=== PATIENT | female | born 1950 | race Caucasian/White ===

== ENCOUNTER 2016-08-10 18:05 | Emergency (ER) | payer OTHER ==
[~2016-08-10] VITALS: Ht 162.6 cm; Wt 113.4 kg
[~2016-08-10 18:05] MED LIST: CLIN1GEL3 TOP; DULO30CA PO; FIOR30CA PO; LISI20TA3 PO; METF500T PO; METH75TA PO; METR0.00 TOP; OMEP40CA2 PO
[2016-08-10] MEDS ORDERED: PRAV40TA2 (18:20)
[2016-08-10] MEDS ORDERED: DESO0.053 (18:20)
[2016-08-10] MEDS ORDERED: ALPR0.5T3 (18:20)
[2016-08-10 20:25] VITALS: BP 146/62
[2016-08-15] MEDS ORDERED: CLOB0.0548 TOP (10:51)
[2016-08-15] MEDS ORDERED: FIOR1CAP PO (10:51)
[2016-08-15] MEDS ORDERED: PRAV40TA2 PO (10:51)
[2016-08-15] MEDS ORDERED: ALPR0.5T3 PO (10:51)
[2016-08-15] MEDS ORDERED: CLOB0.0548 (10:51)
[2016-08-15] MEDS ORDERED: DESO0.0557 EX (10:51)
[2016-08-15] MEDS ORDERED: DESO0.053 TOP (10:51)
== END 2016-08-10 20:26 | disposition home or self-care (01) ==
LOC: M ED 19:16
DX: H53.8 Other visual disturbances (principal); R10.30 Lower abdominal pain, unspecified; E66.9 Obesity, unspecified; I10 Essential (primary) hypertension; F42.9 Obsessive-compulsive disorder, unspecified; M54.9 Dorsalgia, unspecified; Z88.0 Allergy status to penicillin; Z88.1 Allergy status to other antibiotic agents; Z88.5 Allergy status to narcotic agent; Z88.8 Allergy status to other drugs, medicaments and biological substances; Z79.899 Other long term (current) drug therapy; Z79.84 Long term (current) use of oral hypoglycemic drugs

== ENCOUNTER 2016-08-17 08:30 | Day surgery (SDC) | payer OTHER ==
[2016-08-17] VITALS (8 sets, daily range): BP systolic 124–137; BP diastolic 66–75; O2SAT 98
[~2016-08-17] VITALS: Ht 162.6 cm; Wt 113.4 kg
[~2016-08-17 08:30] MED LIST changes: +ALPR0.5T3; +ALPR0.5T3 PO; +CLOB0.0548; +CLOB0.0548 TOP; +DESO0.053; +DESO0.053 TOP; +DESO0.0557 EX; +FIOR1CAP PO; +LR 1,000 ML IV SCH; +PRAV40TA2; +PRAV40TA2 PO
[2016-08-17 09:11] LABS: MEAN CORPUSCULAR HEMOGLOBIN 30.3 pg (27.0-33.0); MEAN CORPUSCULAR HGB CONC 33.8 g/dl (32.0-36.5); MEAN CORPUSCULAR VOLUME 89.6 fl (80.0-96.0); RED CELL DISTRIBUTION WIDTH 12.8 % (11.5-14.5); WHITE BLOOD COUNT 4.9 K/mm3 (4.0-10.0)
[2016-08-17] MEDS ORDERED: MAGNSOL PO (09:42)
[2016-08-17] MEDS ORDERED: BUPIVACAINE/EPIN 0.25% 30 ML VIAL As Ordered ONE (10:03)
[2016-08-17] MEDS ORDERED: FLUORESCEIN 10% (100MG/ML) 5 ML VIAL As Ordered ONE (10:03)
[2016-08-17] MEDS ORDERED: ACETAMINOPHEN 650 MG SUPP As Ordered ONE (10:03)
--- NOTE | 2016-08-17 10:11 | REP ---
Clinical: Preoperative assessment . Comparison: None . Technique: PA Findings: The mediastinum and cardiac silhouette are normal. The lung varela are clear and without acute consolidation, effusion, or pneumothorax. The skeletal structures are intact and normal. Impression: 1. No acute cardiopulmonary process. Signed by Simone Alvarado MD 08/17/2016 10:03 A
[2016-08-17] MEDS ORDERED: LIDOCAINE 2% INJ 100 MG/5 ML SDV (FOR ANES.) As Ordered ONE (11:59)
[2016-08-17] MEDS ORDERED: PROPOFOL 200 MG/20 ML VIAL As Ordered ONE ×2 (11:59→13:04)
[2016-08-17] MEDS ORDERED: fentaNYL 250 MCG/5 ML INJECTION (J3010) As Ordered ONE (11:59)
[2016-08-17] MEDS ORDERED: ROCURONIUM BROMIDE 50 MG/5 ML VIAL As Ordered ONE (11:59)
[2016-08-17] MEDS ORDERED: KETOROLAC 60 MG/2 ML VIAL (J1885) As Ordered ONE (11:59)
[2016-08-17] MEDS ORDERED: HYDROmorphone HCL 2 MG/ML 1ML VIAL (J1170) As Ordered ONE (11:59)
[2016-08-17] MEDS ORDERED: ONDANSETRON 4MG/2ML VIAL (J2405) As Ordered ONE (11:59)
[2016-08-17] MEDS ORDERED: MIDAZOLAM INJ 2 MG/2 ML VIAL (J2250) As Ordered ONE (11:59)
[2016-08-17] MEDS ORDERED: dexameTHASONE 4 MG/ML 1ML VIAL (J1100) As Ordered ONE (11:59)
[2016-08-17] MEDS ORDERED: GLYCOPYRROLATE INJ 0.2 MG/ML 2 ML VIAL As Ordered ONE (12:31)
[2016-08-17] MEDS ORDERED: NEOSTIGMINE 1MG/ML 5 ML SYRINGE (J2710) As Ordered ONE (12:31)
[2016-08-17] MEDS ORDERED: METOCLOPRAMIDE INJ 10MG/2ML VIAL (J2765) IV PRN (14:15)
[2016-08-17] MEDS ORDERED: fentaNYL 100 MCG/2 ML INJECTION (J3010) IV PRN (14:15)
[2016-08-17] MEDS ORDERED: ONDANSETRON 4MG/2ML VIAL (J2405) IV PRN ×2 (14:15→15:15)
[2016-08-17] MEDS ORDERED: LR 1,000 ML IV SCH (14:15)
[2016-08-17] MEDS ORDERED: MEPERIDINE INJ 25 MG/ML VIAL (J2175) IV PRN (14:15)
[2016-08-17] MEDS ORDERED: PERCOCET 5MG/325MG TAB PO PRN (17:15)
--- NOTE | 2016-08-17 17:26 | RO ---
DATE OF PROCEDURE: 08/17/2016 Sheri is a 66-year-old female status post hysterectomy and right salpingo-oophorectomy. She was noted to have a complex left ovarian/pelvic mass. After extensive counseling a decision was made to remove the ovary/mass. Informed consent was obtained. She was then taken to the operating room after medical clearance. PREOPERATIVE DIAGNOSES: 1. Left ovarian mass/cyst. 2. Post hysterectomy with right salpingo-oophorectomy. POSTOPERATIVE DIAGNOSES: 1. Left ovarian mass/cyst. 2. Post hysterectomy with right salpingo-oophorectomy. 3. Extensive bowel omental and adnexal adhesion. OPERATIVE PROCEDURES: 1. Robotic-assisted laparoscopic left salpingo-oophorectomy. 2. Extensive lysis of adhesion. 3. Cystoscopy. SURGEON: Willi Kay MD CAREER AND GUIDANCE COUNSELOR: None ANESTHESIA: General. COMPLICATIONS: None. ESTIMATED BLOOD LOSS: 400 mL SENT TO THE LAB: The ovary/cyst. DESCRIPTION OF PROCEDURE: Following informed consent the patient was taken to the operating room. When general anesthetic was found to be adequate, she was then draped and prepped in the usual sterile fashion in the dorsal lithotomy position. At this point, a Frazier catheter was placed in the bladder. We then placed a sponge stick in the vagina for uterine manipulator. At this point attention was turned to the abdomen where a 10 mm infraumbilical incision was made. The umbilicus was found to have a small hernia. At this point the trocar was inserted under direct visualization. Upon entering the abdominal cavity, multiple loops of bowel omental adhesions were found obscuring the pelvis and the anterior abdominal wall up to the umbilicus. I was then able to put an 8 mm left lateral port under direct visualization using the Endo Shear and the MACO Harmonic scalpel. I was then able to initiate the lysis of adhesions. We took down the adhesions by the umbilicus and freed down to the pelvis. At that point I was able to put another 8 mm left lateral port as well as a right 8 mm lateral port. With the patient placed in Trendelenburg, the robot was brought to the patient's right side. The robot was docked in the usual fashion. An Endo Shear was placed in arm one and a bipolar grasper in arm two. I then went on scrubbing, went over to the surgeon console and began the surgery. It took us approximately 1-1/2-hour dissecting the adhesions with careful dissection to avoid bowel injury and urethral injury. We were able to free up the left ovarian mass off the pelvic sidewall as well as the cul-de-sac. This was taken down. The infundibulopelvic ligament was identified. This was cauterized and cut. At this point, the ovarian mass as well as the ovary was placed in the cul-de-sac intact. Pelvis copiously irrigated with normal saline and suctioned out. I then rescrubbed and went to the patient's side, undocked the robot. An Endo bag was placed and the left ovarian mass was removed through the umbilical port inside a bag to prevent spillage from the abdominal cavity. The cyst was ruptured with clear yellow fluid and the cyst as well as the remaining ovary was sent to pathology for final diagnosis. At this point, 1 mL of Furacin was given for cystoscopy. I then retrograde filled the bladder with 250 mL of clear urine. Cystoscope was inserted. Cystoscopy was performed. Bilateral urethral jets were noted. No evidence of any bladder injury noted. At this point the cystoscope was removed. The Frazier catheter placed back in the bladder for drainage and the laparoscopic ports were closed using #0 Vicryl in the fascia and #3-0 Vicryl in the skin. Dermabond placed. 0.25% Marcaine was placed for postoperative pain. The patient tolerated procedure well. She was then transferred to recovery room in stable condition.
[2016-08-17] MEDS: IBUPROFEN 800 MG TAB PO SCH (18:00)
[2016-08-17] MEDS ORDERED: LACTATED RINGER'S 1000 ML IV ONE (20:00)
[2016-08-17] MEDS: ONDANSETRON 4MG/2ML VIAL (J2405) IV PRN (20:31)
[2016-08-17] MEDS: SIMETHICONE 80 MG CHEW TAB PO SCH (22:24)
[2016-08-18] VITALS: BP 130/62
[2016-08-18] MEDS: IBUPROFEN 800 MG TAB PO SCH ×2 (00:13→06:00)
[2016-08-18 04:00] VITALS: BP_SYST 133; BP_SYST 167; BP_DIAS 68; BP_DIAS 77
[2016-08-18] MEDS: ONDANSETRON 4MG/2ML VIAL (J2405) IV PRN (04:59)
[2016-08-18] MEDS: SIMETHICONE 80 MG CHEW TAB PO SCH ×2 (06:30)
[2016-08-18 08:00] VITALS: BP 104/55
== END 2016-08-18 10:05 | disposition home or self-care (01) ==
LOC: M SDC 08:30 → M PED 14:30 → M SDC 08-18 10:05
PROVIDERS: ATTEND Obstetrics & Gynecology
DX: D27.1 Benign neoplasm of left ovary (principal); Z90.710 Acquired absence of both cervix and uterus; K66.0 Peritoneal adhesions (postprocedural) (postinfection); I10 Essential (primary) hypertension; E11.9 Type 2 diabetes mellitus without complications; M19.90 Unspecified osteoarthritis, unspecified site; M54.9 Dorsalgia, unspecified; L71.9 Rosacea, unspecified; F41.9 Anxiety disorder, unspecified; F32.9 Major depressive disorder, single episode, unspecified; G57.90 Unspecified mononeuropathy of unspecified lower limb; F42.9 Obsessive-compulsive disorder, unspecified; E66.9 Obesity, unspecified; G47.9 Sleep disorder, unspecified; Z88.8 Allergy status to other drugs, medicaments and biological substances; Z88.1 Allergy status to other antibiotic agents; Z88.5 Allergy status to narcotic agent; Z88.0 Allergy status to penicillin; Z91.048 Other nonmedicinal substance allergy status; Z79.899 Other long term (current) drug therapy; Z79.84 Long term (current) use of oral hypoglycemic drugs
CPT/HCPCS: 36415; 58661; 71010; 85027; 86850; 86900; 86901; 88307; J1100; J1170; J1885; J2250; J2405; J2710; J3010

== ENCOUNTER → 2016-09-20 | Outpatient (REF) | payer OTHER ==
[~2016-09-20] MED LIST changes: -LR 1,000 ML IV SCH; +MAGNSOL PO
== END ==
LOC: M LAB REF 12:49
PROVIDERS: ATTEND Obstetrics & Gynecology
DX: L03.316 Cellulitis of umbilicus (principal)

== ENCOUNTER → 2019-01-07 | Outpatient (CLI) | payer MEDICARE, OTHER ==
[~2019-01-07] MED LIST changes: -DULO30CA PO; +DULO30CA9 PO; +LISI20TA20 PO; -LISI20TA3 PO; -MAGNSOL PO; +MAGNSOL18 PO; -METF500T PO; +METF500T13 PO; +METH750T2 PO; -METH75TA PO; -OMEP40CA2 PO; +OMEP40CA97 PO
--- NOTE | 2019-01-07 15:38 | REP ---
Left hip: Two views. History: Left hip pain. Findings: The patient is status post left hip arthroplasty. The arthroplasty components are well aligned with respect to their [place] bones and with respect to each other. There is some periarticular soft-tissue calcification or early ossification superior and lateral to the left hip. There is degenerative sclerosis at the symphysis pubis. Bones, joints and soft tissues are otherwise unremarkable. Impression: Status post left hip arthroplasty. No acute abnormality. Electronically Signed by Carlos Jones MD 01/07/2019 03:42 P
== END ==
LOC: M ADAMS 14:46
PROVIDERS: ATTEND Physician Assistant
DX: M25.552 Pain in left hip (principal)

== ENCOUNTER → 2019-09-24 | Outpatient (REF) | payer MEDICARE, OTHER ==
[~2019-09-24] MED LIST changes: -MAGNSOL18 PO; +MAGNSOL2 PO
== END ==
LOC: M LAB REF 16:17
PROVIDERS: ATTEND Nurse Practitioner Adult Health
DX: Z79.899 Other long term (current) drug therapy (principal)

== ENCOUNTER → 2019-12-25 | Outpatient (REF) | payer MEDICARE, OTHER ==
[2019-12-26 14:57] LABS: HEPATITIS A ANTIBODY IGM NEGATIVE (NEGATIVE); HEPATITIS B CORE ANTIBODY IGM NEGATIVE (NEGATIVE); HEPATITIS B SURFACE ANTIGEN NEGATIVE (NEGATIVE); HEPATITIS C VIRUS ABY INDEX 0.1 INDEX (<0.8)
== END ==
LOC: M LAB REF 11:15
PROVIDERS: ATTEND Nurse Practitioner Adult Health
DX: R94.5 Abnormal results of liver function studies (principal)

== ENCOUNTER → 2023-09-28 | Outpatient (REF) | payer MEDICARE, OTHER ==
[~2023-09-28] MED LIST changes: -DESO0.053; -DESO0.053 TOP; -LISI20TA20 PO; +LISI20TA37 PO; +METH-1165 PO; -METH750T2 PO; +OMEP40CA4 PO; -OMEP40CA97 PO; +[UNRECOGNIZED DRUG - CODE]; +[UNRECOGNIZED DRUG - CODE] TOP
[2023-09-28 13:33] LABS: IONIZED CALCIUM 4.6 MG/DL (4.5-5.3)
== END ==
LOC: M LAB REF 12:04
PROVIDERS: ATTEND Internal Medicine
DX: E83.52 Hypercalcemia (principal)

== ENCOUNTER → 2023-10-18 | Outpatient (CLI) | payer MEDICARE, OTHER | LOC: M RAD 10:04 | PROVIDERS: ATTEND Internal Medicine | DX: R94.5 Abnormal results of liver function studies (principal); R93.2 Abnormal findings on diagnostic imaging of liver and biliary tract ==

== ENCOUNTER → 2024-10-15 | Outpatient (REF) | payer MEDICARE, OTHER ==
[~2024-10-15] MED LIST changes: -PRAV40TA2; -PRAV40TA2 PO; +PRAV40TA85; +PRAV40TA85 PO
== END ==
LOC: M LAB REF 14:48
PROVIDERS: ATTEND Internal Medicine
DX: N18.31 Chronic kidney disease, stage 3a (principal)

== ENCOUNTER → 2025-03-18 | Outpatient (REF) | payer MEDICARE, OTHER ==
[~2025-03-18] MED LIST changes: -DESO0.0557 EX; +DESO0.0572 EX; +[UNRECOGNIZED DRUG - CODE]; -[UNRECOGNIZED DRUG - CODE]; +[UNRECOGNIZED DRUG - CODE] TOP; -[UNRECOGNIZED DRUG - CODE] TOP
== END ==
LOC: M LAB REF 17:46
PROVIDERS: ATTEND Internal Medicine
DX: K75.81 Nonalcoholic steatohepatitis (NASH) (principal)